=== PATIENT | female | born 1995 | race Caucasian/White ===

== ENCOUNTER 2016-12-12 10:13 | Emergency (ER) | payer BC ==
[~2016-12-12] VITALS: Ht 160 cm; Wt 68.0 kg
[2016-12-12 10:13] VITALS: BP 130/68
[2016-12-12] MEDS ORDERED: ORAL CONTRACEPTIVE (10:23)
[2016-12-12] MEDS ORDERED: CHLORHEXIDINE GLUCONATE 4% 118 ML BOTTLE TP ONE (11:30)
[2016-12-12] MEDS ORDERED: LIDOCAINE 2% 20 ML MDV TP ONE (11:30)
--- NOTE | 2016-12-12 11:32 | NUR ---
AT BEDSIDE FOR I&D
== END 2016-12-12 11:58 | disposition home or self-care (01) ==
LOC: ER 10:15
DX: L02.214 Cutaneous abscess of groin (principal)
CPT/HCPCS: 10060; 99283; A4606; A6402; A6403; Z7610